=== PATIENT | male | born 1930 | race Hispanic/Latino ===

== ENCOUNTER 2018-04-15 18:27 | Observation (INO) | payer MEDICARE ==
[2018-04-15 19:59] LABS: HEMOGLOBIN 13.7 g/dL (14.0-18.0); MEAN CELL VOLUME 86.1 fl (80.0-105.0); MEAN CORPUSCULAR HEMOGLOBIN 30.2 pg (25.0-35.0); MEAN CORPUSCULAR HGB CONC 35.1 g/dl (31.0-37.0); MEAN PLATELET VOLUME 10.4 fl (7.0-11.0); RBC 4.53 10^6/uL (3.5-6.1); RED CELL DISTRIBUTION WIDTH 14.2 % (11.5-14.5); WHITE BLOOD COUNT 8.7 10^3/ul (4.5-11.0)
--- NOTE | 2018-04-15 20:00 | ED PDOC ---
Arrival/HPI - General Chief Complaint: Lower Extremity Problem/Injury Time Seen by Provider: 04/15/18 19:21 Historian: Patient - History of Present Illness Narrative History of Present Illness (Text): 04/15/18 19:57 87 year old male, whose past medical history includes CAD and cardiac stent placements, who presents to the emergency department complaining of swelling/ redness to the RLE for the past couple days. Patient notes the swelling/ redness extends from the foot up the leg. Patient denies any fever, chills, chest pain, shortness of breath, back pain, neck pain, headache, dizziness, trauma/injury, or any other complaints. Time/Duration: < week Symptom Onset: Gradual Symptom Course: Unchanged Activities at Onset: Light Context: Home Past Medical History - Provider Review Nursing Documentation Reviewed: Yes - Cardiac Hx Hypertension: Yes - Pulmonary Hx Respiratory Disorders: No - Neurological Hx Neurological Disorder: No - HEENT Hx HEENT Disorder: No - Renal Hx Renal Disorder: No - Endocrine/Metabolic Hx Endocrine Disorders: No - Hematological/Oncological Hx Blood Disorders: No - Integumentary Hx Dermatological Disorder: No - Musculoskeletal/Rheumatological Hx Musculoskeletal Disorders: No - Gastrointestinal Hx Gastrointestinal Disorders: No - Genitourinary/Gynecological Hx Genitourinary Disorders: No - Psychiatric Hx Depression: No Hx Emotional Abuse: No Hx Physical Abuse: No Hx Substance Use: No - Past Surgical History Past Surgical History: No Previous - Surgical History Hx Coronary Stent: Yes (2) - Suicidal Assessment Feels Threatened In Home Enviroment: No Family/Social History - Physician Review Nursing Documentation Reviewed: Yes Family/Social History: Unknown Family HX Smoking Status: Never Smoked Hx Alcohol Use: No Hx Substance Use: No Hx Substance Use Treatment: No Allergies/Home Meds Allergies/Adverse Reactions: Allergies No Known Allergies Allergy (Verified 04/15/18 18:39) Home Medications: Home Meds Medication Instructions Recorded Confirmed Aspirin 81 mg PO DAILY 05/25/14 05/25/14 Clopidogrel Hydrogen Sulfate 75 mg PO DAILY 05/25/14 05/25/14 [Plavix] Lisinopril 20 mg PO DAILY 05/25/14 05/25/14 Simvastatin 20 mg PO DAILY 05/25/14 05/25/14 Review of Systems - Physician Review All systems were reviewed & negative as marked: Yes - Review of Systems Constitutional: Normal Eyes: Normal ENT: Normal Respiratory: Normal. absent: SOB, Cough Cardiovascular: Normal. absent: Chest Pain Gastrointestinal: Normal. absent: Abdominal Pain, Diarrhea, Nausea, Vomiting Genitourinary Male: Normal. absent: Dysuria, Frequency, Hematuria, Urinary Output Changes Musculoskeletal: Normal Skin: Rash (RLE), Other (swellinf RLE) Neurological: Normal. absent: Headache, Dizziness Endocrine: Normal Hemo/Lymphatic: Normal Psychiatric: Normal Physical Exam Vital Signs Reviewed: Yes Vital Signs Temp Pulse Resp BP Pulse Ox 04/15/18 18:55 97.6 F 77 19 148/76 96 04/15/18 18:39 97.6 F 77 18 148/76 96 Temperature: Afebrile Blood Pressure: Normal Pulse: Regular Respiratory Rate: Normal Appearance: Positive for: Well-Appearing, Non-Toxic, Comfortable Pain Distress: None Mental Status: Positive for: Alert and Oriented X 3 - Systems Exam Head: Present: Atraumatic, Normocephalic Pupils: Present: PERRL Extroacular Muscles: Present: EOMI Conjunctiva: Present: Normal Mouth: Present: Moist Mucous Membranes Neck: Present: Normal Range of Motion. No: Meningeal Signs, MIDLINE TENDERNESS , JVD Respiratory/Chest: Present: Clear to Auscultation, Good Air Exchange. No: Respiratory Distress, Accessory Muscle Use Cardiovascular: Present: Regular Rate and Rhythm, Normal S1, S2. No: Murmurs Abdomen: No: Tenderness, Distention, Peritoneal Signs Back: Present: Normal Inspection. No: CVA Tenderness, Midline Tenderness, Paraspinal Tenderness Upper Extremity: Present: Normal Inspection. No: Cyanosis, Edema Lower Extremity: Present: Edema, Normal ROM, Swelling, Erythema, Neurovascularly Intact, Other (warmth RLE). No: CALF TENDERNESS, Geovanni's Sign Neurological: Present: GCS=15, CN II-XII Intact, Speech Normal Skin: Present: Warm, Dry, Normal Color. No: Rashes Psychiatric: Present: Alert, Oriented x 3, Normal Insight, Normal Concentration Medical Decision Making ED Course and Treatment: 04/15/18 20:03 Impression: 87 year old male who presents to the emergency department complaining of swelling and redness to the RLE. Plan: -- Labs -- Blood Culture -- US RLE -- Reassess and disposition Progress Notes: 04/15/18 20:17 Venous Doppler show negatives results. 04/15/18 21:[address] Lin, who is aware and agrees with plan. Accepts pt in to his service. Pt will go to [facility] observation for cellulitis. - Lab Interpretations Lab Results: 04/15/18 19:54 04/15/18 19:54 Lab Results 04/15/18 19:54: WBC 8.7 D, RBC 4.53, Hgb 13.7 L, Hct 39.0 L, MCV 86.1, MCH 30.2 , MCHC 35.1, RDW 14.2, Plt Count 211, MPV 10.4 04/15/18 19:54: Sodium 142, Potassium 4.9, Chloride 106, Carbon Dioxide 25, Anion Gap 16, BUN 36 H, Creatinine 1.1, Est GFR ( Amer) > 60, Est GFR ( Non-Af Amer) > 60, Random Glucose 88, Calcium 9.6, Total Bilirubin 0.3, AST 39, ALT 33, Alkaline Phosphatase 87, Total Protein 7.1, Albumin 4.1, Globulin 3.0, Albumin/Globulin Ratio 1.4 I have reviewed the lab results: Yes - RAD Interpretation Radiology Orders: 04/15/18 19:34 DUPLEX LOWER EXTRM VEIN BILAT [US] Stat - Medication Orders Current Medication Orders: Vancomycin HCl/Dextrose (Vancocin) 200 mls @ 133.333 mls/hr IV STAT STA PRN Reason: Protocol Stop: 04/15/18 23:04 Piperacillin Sod/Tazobactam Sod (Zosyn 3.375 In Ns 100ml) 100 mls @ 200 mls/hr IV STAT STA PRN Reason: Protocol Stop: 04/15/18 22:04 Sodium Chloride (Sodium Chloride 0.9%) 1,000 mls @ 100 mls/hr IV .Q10H STA Stop: 04/16/18 07:35 - Scribe Statement The provider has reviewed the documentation as recorded by the Scribe Katia Watters All medical record entries made by the Scribe were at my direction and personally dictated by me. I have reviewed the chart and agree that the record accurately reflects my personal performance of the history, physical exam, medical decision making, and the department course for this patient. I have also personally directed, reviewed, and agree with the discharge instructions and disposition. Disposition/Present on Arrival - Present on Arrival Any Indicators Present on Arrival: No History of DVT/PE: No History of Uncontrolled Diabetes: No Urinary Catheter: No History of Decub. Ulcer: No History Surgical Site Infection Following: None - Disposition Have Diagnosis and Disposition been Completed?: Yes Diagnosis: Cellulitis Disposition: HOSPITALIZED Disposition Time: 21:27 Patient Plan: Observation Condition: STABLE Discharge Instructions (ExitCare): Cellulitis (ED) Referrals: Antoine Lin JD, MD [Primary Care Provider] - Follow up with primary Forms: [facility] (Nepali)
[2018-04-15 20:15] LABS: ALB/GLOB RATIO 1.4 (1.1-1.8); ALBUMIN 4.1 g/dL (3.0-4.8); ALT/SGPT 33 U/L (7-56); AST/SGOT 39 U/L (17-59); BLOOD UREA NITROGEN 36 mg/dL (7-21); CALCIUM 9.6 mg/dL (8.4-10.5); GFR AFRICAN-AMERICAN > 60; GFR NON-AFRICAN AMERICAN > 60
[2018-04-15] MEDS ORDERED: Vancomycin 1 gm/D5W 200 ml 200 ML IV STA (21:35)
[2018-04-15] MEDS ORDERED: Piperacillin/Tazobact 3.375 gm 100 ML IV STA (21:35)
[2018-04-15] MEDS ORDERED: Sodium Chloride 0.9% 1,000 ML IV STA (21:36)
[2018-04-15] MEDS ORDERED: Vancomycin 1gm in NS 250ml 1 GM/250 ML BAG IVPB STA (21:45)
[2018-04-16 05:53] VITALS: O2SAT 96
[2018-04-16 07:52] VITALS: BP 140/80; PULSE 79; RESP 20; TEMP 98.3
[2018-04-16] MEDS ORDERED: Metoprolol Succinate 50 mg XL Tab PO ONE (10:11)
--- NOTE | 2018-04-16 21:54 | HP ---
DATE OF EXAM: 04/16/2018 HISTORY OF PRESENT ILLNESS: The patient is an 87-year-old male with a history of coronary artery disease and stent placement who presented to the emergency department on 04/15/2018 with swelling of the right foot extending up the leg with some redness. The patient was treated in the emergency department with IV vancomycin with some improvement. He is admitted to the medical-surgical floor for further evaluation and management. PAST MEDICAL HISTORY: Includes coronary artery disease status post stent placement, hypertension and hypercholesterolemia. PAST SURGICAL HISTORY: The patient has no significant past surgical history. CURRENT MEDICATIONS: Include Plavix 75 mg daily, Ecotrin 81 mg daily, lisinopril 20 mg daily and simvastatin 20 mg p.o. daily. FAMILY HISTORY: Noncontributory. SOCIAL HISTORY: The patient does not have any history of alcohol, tobacco use. He is independent with ADLs and IADLs. REVIEW OF SYSTEMS: The patient denies any chest pains, has no shortness of breath, has no fever, no chills. No nausea, no vomiting. No abdominal pain. No jaundice. PHYSICAL EXAMINATION: GENERAL: The patient is a well-developed male in no acute distress. VITAL SIGNS: Blood pressure 140/80, temperature 98.3, pulse 79, respiratory rate 20. HEENT: Head is normocephalic, atraumatic. Pupils equal, round, reactive to light. Extraocular movements intact. NECK: Supple with no thyromegaly. No carotid bruit. No adenopathy. LUNGS: Clear. HEART: Regular rate and rhythm. ABDOMEN: Soft, nontender. Bowel sounds are normoactive. EXTREMITIES: Without cyanosis or clubbing. There is mild edema of the right foot with mild erythema and no warmth and some tenderness above the first and second metatarsals. NEUROLOGICAL: The patient is awake and oriented x3 without focal sensory or motor deficits. SKIN: Warm and dry. LABORATORY DATA: WBC is 8.7, hemoglobin 13.7, hematocrit 39.0. CMP is within normal limits. IMPRESSION 1. Acute inflammatory arthritis of the right foot rule out cellulitis. 2. Coronary artery disease status post stent placement. 3. Hypertension. 4. Hypercholesterolemia. PLAN: The patient has received a dose of vancomycin and Zosyn in the emergency department. There is no clinical evidence for sepsis. We will start the patient on oral Augmentin as well as an anti-inflammatory and consider discharged to home at patient request. DIVYA Garcia MD
--- NOTE | 2018-04-16 23:45 | DS ---
HOSPITAL COURSE: The patient is an 87-year-old male admitted through the emergency department on 04/15/2018 for swelling and pain of the right foot. He was started empirically on intravenous vancomycin and piperacillin with some improvement of the swelling in his right foot. At the present time, there is no fever, no chills, no white blood cell count and the patient is medically stable for discharge to home on oral antibiotics. Physical examination and vital signs are as per history and physical dated today, 04/16/2018. IMPRESSION: 1. Acute inflammatory arthritis of the right foot, rule out cellulitis. 2. Coronary artery disease, status post stent placement. 3. Hypertension. 4. Hypercholesterolemia. PLAN: The patient will be discharged to home today on the following medications; Augmentin 875 mg twice daily for 7 days as well as indomethacin 25 mg every 8 hours. He is also discharged on Lipitor 20 mg daily, lisinopril 20 mg daily, metoprolol succinate 50 mg once daily, Ecotrin 81 mg daily, and Plavix 75 mg daily. He will be maintained on a heart-healthy diet. Activities ad libitum. He will be seen for followup in the office this week. DIVYA Garcia MD
--- NOTE | 2018-04-17 09:53 | US ---
HISTORY: Leg pain and swelling. Evaluate for DVT PHYSICIAN(S): Ethan Baer MD. TECHNIQUE: Duplex sonography and color-flow Doppler with graded compression were used to evaluate the deep venous systems of both lower extremities. FINDINGS: The visualized deep venous systems of both lower extremities are sonographically normal and compressible. Normal wave forms and augmentation are seen. There is no sonographic evidence for deep venous thrombosis in the visualized segments of both lower extremities. IMPRESSION: No sonographic evidence for deep venous thrombosis in the visualized segments of both lower extremities.
== END 2018-04-16 12:53 | disposition home or self-care (01) ==
LOC: ED 18:27 → ERH 21:35 → 5RSO 22:41
PROVIDERS: ADMIT Internal Medicine; ATTEND Internal Medicine
DX: M06.4 Inflammatory polyarthropathy (principal); M19.071 Primary osteoarthritis, right ankle and foot; L03.115 Cellulitis of right lower limb; E78.00 Pure hypercholesterolemia, unspecified; I10 Essential (primary) hypertension; I25.10 Atherosclerotic heart disease of native coronary artery without angina pectoris; Z95.5 Presence of coronary angioplasty implant and graft; Z79.82 Long term (current) use of aspirin; R40.2412 Glasgow coma scale score 13-15, at arrival to emergency department
CPT/HCPCS: 80053; 85027; 87040; 93970; 96365; 96375; 99284; G0378; J2543; J7030